=== PATIENT | female | born 1965 | race Caucasian/White ===

== ENCOUNTER → 2017-01-18 | Outpatient (CLI) | payer OTHER ==
--- NOTE | 2017-01-18 15:04 | RAD ---
DATE: 01/18/2017 EXAM: DIGITAL SCREEN BILAT W/CAD HISTORY: Screening COMPARISON: None This study was interpreted with the benefit of Computerized Aided Detection (CAD). FINDINGS: Breast Density: SCATTERED The breast parenchyma shows scattered fibroglandular densities. Breast parenchyma level B. No mass or suspect calcifications are seen in either breast IMPRESSION: Benign findings BI-RADS CATEGORY: 2 BENIGN FINDING(S) RECOMMENDED FOLLOW-UP: 12M 12 MONTH FOLLOW-UP PQRS compliance statement: Patient information was entered into a reminder system with a target due date 01/18/2018 for the next mammogram. Mammography is a sensitive method for finding small breast cancers, but it does not detect them all and is not a substitute for careful clinical examination. A negative mammogram does not negate a clinically suspicious finding and should not result in delay in biopsying a clinically suspicious abnormality. "Our facility is accredited by the [employer] Mammography Program."
== END | disposition home or self-care (01) ==
LOC: MAMMO 10:23
PROVIDERS: ATTEND Obstetrics & Gynecology
DX: Z12.31 Encounter for screening mammogram for malignant neoplasm of breast (principal)
CPT/HCPCS: G0202; 77067

== ENCOUNTER → 2018-02-17 | Outpatient (CLI) | payer OTHER ==
[2018-02-17 14:13] LABS: BASO # 0.1 x10^3/uL (0.0-0.2); BASO % 1 % (0-3); EOS # 0.1 x10^3/uL (0.0-0.7); EOS % 2 % (0-3); HEMATOCRIT 44.1 % (36.0-47.0); HEMOGLOBIN 14.9 g/dL (12.0-15.5); LYMPH # 2.2 x10^3/uL (1.0-4.8); LYMPH % 38 % (24-48); MEAN CORPUSCULAR HEMOGLOBIN 31 pg (25-35); MEAN CORPUSCULAR HGB CONC 34 g/dL (31-37); MEAN CORPUSCULAR VOLUME 91 fL (79-100); MONO # 0.5 x10^3/uL (0.0-1.1); MONO % 9 % (0-9); NEUT # 2.9 x10^3uL (1.8-7.7); NEUT % 49 % (31-73); PLATELET COUNT 301 x10^3/uL (140-400); RED BLOOD COUNT 4.86 x10^6/uL (3.50-5.40); RED CELL DISTRIBUTION WIDTH 13.7 % (11.5-14.5); WHITE BLOOD COUNT 5.8 x10^3/uL (4.0-11.0)
== END | disposition home or self-care (01) ==
LOC: LAB 13:34
PROVIDERS: ATTEND Family Medicine
DX: R07.89 Other chest pain (principal)
CPT/HCPCS: 36415; 82553; 84484; 85025

== ENCOUNTER 2020-06-23 12:08 | Emergency (ER) | payer OTHER ==
[~2020-06-23] VITALS: Ht 162.6 cm; Wt 93.7 kg
[2020-06-23 12:15] VITALS: BP 137/77
--- NOTE | 2020-06-23 12:38 | PHYS DOC ---
General Adult EDM: Chief Complaint: ANKLE PROBLEM HPI: HPI: Patient is a 55-year-old female who presents with right ankle pain after tripping and falling on the sidewalk. Patient states "I heard a popping sound when I rolled my ankle". Patient states that she is unable to bear weight and had to have help to the car. Patient denies taking anything for pain prior to arrival. Patient has history of arthritis. Review of Systems: Review of Systems: Constitutional: Denies fever or chills Eyes: Denies change in visual acuity HENT: Denies nasal congestion or sore throat Respiratory: Denies cough or shortness of breath Cardiovascular: Denies chest pain or edema GI: Denies abdominal pain, nausea, vomiting, bloody stools or diarrhea : Denies dysuria Musculoskeletal: Denies back pain, reports right ankle pain Integument: Denies rash Neurologic: Denies headache, focal weakness or sensory changes Endocrine: Denies polyuria or polydipsia Lymphatic: Denies swollen glands Psychiatric: Denies depression or anxiety Allergies: Allergies: Allergies Coded Allergies Type Severity Reaction Last Updated Verified Penicillins Allergy Unknown 06/23/20 Yes Physical Exam: PE: Constitutional: Well developed, well nourished, no acute distress, non-toxic appearance. [] HENT: Normocephalic, atraumatic, bilateral external ears normal, oropharynx moist, no oral exudates, nose normal. [] Eyes: PERRLA, EOMI, conjunctiva normal, no discharge. [] Neck: Normal range of motion, no tenderness, supple, no stridor. [] Cardiovascular:Heart rate regular rhythm, no murmur [] Lungs & Thorax: Bilateral breath sounds clear to auscultation [] Abdomen: Bowel sounds normal, soft, no tenderness, no masses, no pulsatile masses. [] Skin: Warm, dry, no erythema, no rash. [] Back: No tenderness, no CVA tenderness. [] Extremities: Right ankle tenderness, ROM intact, swelling, pedal pulses intact Neurologic: Alert and oriented X 3, normal motor function, normal sensory function, no focal deficits noted. [] Psychologic: Affect normal, judgement normal, mood normal. [] EKG: EKG: [] Radiology/Procedures: Radiology/Procedures: []Study: XR EXAM OF ANKLE_RIGHT 3VIEWS Indication: Fall. Comparison: None. Findings: On the AP view, small focus of increased density distal to the tip of the lateral malleolus. The lateral gutter is slightly wider than the medial gutter but there is no gross malalignment noting the absence of weightbearing. The partially assessed foot is intact. Plantar calcaneal spur and enthesophyte formation at the Achilles insertion. Lateral ankle soft tissue swelling. Presumed ankle joint effusion and some edema of Kager's fat pad. Impression: 1. Small focus of increased density distal to the tip of the lateral malleolus, only on the AP view, but this is not diagnostic of a fracture. There is also faint asymmetric widening of the lateral gutter. Consider follow--up radiographs in two to three weeks with the patient weightbearing to further assess for a fracture and/or ligamentous injury. 2. Edematous soft tissues mainly at the lateral ankle and a presumed ankle joint effusion. Electronically signed by: PONCHO ARIZMENDI MD (06/23/2020 12:51 PM) [id number] Heart Score: C/O Chest Pain: No Risk Factors: Risk Factors: DM, Current or recent (<one month) smoker, HTN, HLP, family history of CAD, obesity. Risk Scores: Score 0 - 3: 2.5% MACE over next 6 weeks - Discharge Home Score 4 - 6: 20.3% MACE over next 6 weeks - Admit for Clinical Observation Score 7 - 10: 72.7% MACE over next 6 weeks - Early Invasive Strategies Course & Med Decision Making: Course & Med Decision Making Pertinent Labs and Imaging studies reviewed. (See chart for details) [] Right ankle x-ray ordered to rule out fracture. Patient is still able to bear weight. Pedal pulses intact. Range of motion intact. Hydrocodone given for pain. Right ankle x-ray is not indicative of a fracture. Recommend following up with repeat imaging in 2 weeks. Michael bandage applied to ankle. Rice instructions given. Patient instructed to follow-up with Ortho in 2 weeks. Ibuprofen at home for pain. Patient to return to the emergency room with worsening symptoms or concerns Cornel Disclaimer: Cornel Disclaimer: This electronic medical record was generated, in whole or in part, using a voice recognition dictation system. Departure Departure: Impression: Primary Impression: Ankle pain, right Qualified Codes: M25.571 - Pain in right ankle and joints of right foot Disposition: 01 DC HOME SELF CARE/HOMELESS Condition: STABLE Referrals: KAREN GUY MD (PCP) Patient Instructions: Ankle Sprain, [id number], RICE - Routine Care for Injuries, [id number] Additional Instructions: You were seen in the emergency room after a fall and twisting your ankle. The x-ray does not show an obvious fracture at this time. We do recommend that you follow-up with Ortho in 2 weeks for repeat imaging. Use ice to the affected ankle, Michael wrap, and elevate leg to reduce swelling. You can take ibuprofen at home for discomfort. I have included the contact information for orthopedics. If you have worsening symptoms or concerns please return to the emergency room. [facility] - Orthopedics [address] [facility], [place] [address] EMERGENCY DEPARTMENT GENERAL DISCHARGE INSTRUCTIONS Thank you for coming to [facility] (ED) today and trusting us with you care. We trust that you had a positivie experience in our Emergency Department. If you wish to speak to the department management, you may call the director at [phone]. YOUR FOLLOW UP INSTRUCTIONS ARE FOLLOWS: 1. Do you have a private Doctor? If you do not have a private doctor, please ask for a resource list of physicians or clinics that may be able to assist you with follow up care. 2. The Emergency Physician has interpreted your x-rays. The X-Ray specialist will also review them. If there is a change in the findings, you will be notified in 48 hours when at all possible. 3. A lab test or culture has been done, your results will be reviewed and you will be notified if you need a change in treatment. ADDITIONAL INSTRUCTIONS AND INFORMATION: 1. Your care today has been supervised by a physician who is specially trained in emergency care. Many problems require more than one evaluation for a complete diagnosis and treatment. We recommend that you schedule your follow up appointment as recommended to ensure complete treatment of you illness or injury. If you are unable to obtain follow up care and continue to have a problem, or if your condition worsens, we recommend that you return to the ED. 2. We are not able to safely determine your condition over the phone nor are we able to give sound medical advice over the phone. For these safety reasons, if you call for medical advice we will ask you to come to the ED for further evaluation. 3. If you have any questions regarding these discharge instructions please call the ED at [phone]. SAFETY INFORMATION: In the interest of safety, wellness, and injury prevention; we encourage you to wear your sealbelt, if you smoke; quite smoking, and we encourage family to use a protective helmet for bicycling and other sporting events that present an increased risk for head injury. IF YOUR SYMPTOMS WORSEN OR NEW SYMPTOMS DEVELOP, OR YOU HAVE CONCERNS ABOUT YOUR CONDITION; OR IF YOUR CONDITION WORSENS WHILE YOU ARE WAITING FOR YOUR FOLLOW UP APPOINTMENT; EITHER CONTACT YOUR PRIMARY CARE DOCTOR, THE PHYSICIAN WHOSE NAME AND NUMBER YOU WERE GIVEN, OR RETURN TO THE ED IMMEDIATELY. CARIE BARBOSA APRN Jun 23, 2020 12:38
[2020-06-23] MEDS ORDERED: HYDROcodone/APAP 5/325MG 1 TAB TABLET PO ONE (12:45)
--- NOTE | 2020-06-23 12:54 | RAD ---
Study: XR EXAM OF ANKLE_RIGHT 3VIEWS Indication: Fall. Comparison: None. Findings: On the AP view, small focus of increased density distal to the tip of the lateral malleolus. The late ral gutter is slightly wider than the medial gutter but there is no gross malalignment noting the abs ence of weightbearing. The partially assessed foot is intact. Plantar calcaneal spur and enthesophyte formation at the Achilles insertion. Lateral ankle soft tissue swelling. Presumed ankle joint effusion and some edema of Kager's fat pad. Impression: 1. Small focus of increased density distal to the tip of the lateral malleolus, only on the AP view, but this is not diagnostic of a fracture. There is also faint asymmetric widening of the lateral gutt er. Consider follow--up radiographs in two to three weeks with the patient weightbearing to further a ssess for a fracture and/or ligamentous injury. 2. Edematous soft tissues mainly at the lateral ankle and a presumed ankle joint effusion. Electronically signed by: PONCHO ARIZMENDI MD (06/23/2020 12:51 PM) [id number]
== END 2020-06-23 13:30 | disposition home or self-care (01) ==
LOC: ER 12:08
DX: M25.571 Pain in right ankle and joints of right foot (principal); Z88.0 Allergy status to penicillin; W01.0XXA Fall on same level from slipping, tripping and stumbling without subsequent striking against object, initial encounter; Y93.89 Activity, other specified; Y92.89 Other specified places as the place of occurrence of the external cause; Y99.8 Other external cause status
CPT/HCPCS: 73610; 99283